=== PATIENT | female | born 1995 | race Caucasian/White ===

== ENCOUNTER 2018-06-03 21:19 | Emergency (ER) | payer MEDICAID ==
[~2018-06-03] VITALS: Ht 144.8 cm; Wt 62.0 kg
[~2018-06-03 21:19] MED LIST: ACCUPRIL5 MG PO; IRON325 MG PO; NAPROSYN500 MG PO; NO MEDS; PRENATAL1 TA1 PO
[2018-06-03] MEDS ORDERED: MOTRIN800 MG PO (21:49)
[2018-06-03] MEDS ORDERED: TRAMADOL HCL50 MG PO (21:49)
[2018-06-03] MEDS ORDERED: AMOXICILLIN500 M2 PO (21:49)
[2018-06-03 22:06] VITALS: BP 110/70
== END 2018-06-03 22:07 | disposition home or self-care (01) ==
LOC: ED 21:19
DX: K02.9 Dental caries, unspecified (principal); K04.7 Periapical abscess without sinus

== ENCOUNTER 2020-02-24 23:36 | Emergency (ER) | payer MEDICAID ==
[~2020-02-24] VITALS: Ht 144.8 cm; Wt 64.0 kg
[~2020-02-24 23:36] MED LIST changes: +AMOXICILLIN500 M2 PO; +MOTRIN800 MG PO; +TRAMADOL HCL50 MG PO
[2020-02-25 00:20] LABS: HEMATOCRIT 34.3 % (37.0-47.0); HEMOGLOBIN 11.1 g/dl (12.0-16.0); IMMATURE GRANULOCYTES 0.2 % (0.0-5.0); MEAN CELL VOLUME 88.4 fL CALC (80.0-100.0); MEAN CORPUSCULAR HGB 28.6 pG CALC (26.0-32.0); MEAN CORPUSCULAR HGB CONC 32.4 g/dL CAL (32.0-36.0); NEUT# 2.65 thou/uL (2.00-7.15); RED BLOOD COUNT 3.88 mill/uL (4.20-5.60); RED CELL DISTRI WIDTH 13.9 % (11.5-15.5)
[2020-02-25 00:38] LABS: ALBUMIN 3.6 g/dL (3.2-5.0); ALKALINE PHOSPHATASE 81 u/l (38-126); ANION GAP 7 (6-22 (CALC)); BILIRUBIN, TOTAL 0.3 mg/dL (0.0-1.4); BUN 14 mg/dL (7-17); BUN/CREATININE RATIO 22 (12-20 (CALC)); CARBON DIOXIDE 31 mmol/l (22-30); CHLORIDE 104 mmol/l (95-108); CREATININE 0.6 mg/dL (0.5-1.0); GFR > 60 ML/MIN (>=60 (CALC)); GFR FOR AFR.AMER. > 60 ML/MIN (>=60 (CALC)); POTASSIUM 3.7 mmol/l (3.5-5.1); SGOT/AST 18 u/l (14-36); SODIUM 137 mmol/l (137-146); TOTAL PROTEIN 6.4 g/dL (6.3-8.2)
[2020-02-25 00:40] LABS: D-DIMER 0.97 mg/L (0.19-0.60)
[2020-02-25 00:48] LABS: PROTHROMBIN TIME 9.6 SECONDS (9.0-12.5)
[2020-02-25] MEDS ORDERED: TORADOL PO (02:13)
[2020-02-25 02:30] VITALS: BP 122/71
--- NOTE | 2020-02-28 08:52 | NUR ---
Notified patient of positive Covid results. Patient c/o pain with inspiration that has not worsened since her ED visit. Encouraged patient to retuen to ED or follow up with PCP. Advised patient to quarantine until [facility] contacts her with kasey instructions. Patient verbalized understanding.
== END 2020-02-25 02:30 | disposition home or self-care (01) ==
LOC: ED 23:36
PROVIDERS: Family Medicine
DX: U07.1 COVID-19 (principal)
CPT/HCPCS: Q9967

== ENCOUNTER 2020-08-27 23:11 | Emergency (ER) | payer MEDICAID ==
[~2020-08-27] VITALS: Ht 144.8 cm; Wt 64.5 kg
[~2020-08-27 23:11] MED LIST changes: +TORADOL PO
[2020-08-27 23:46] LABS: HEMATOCRIT 37.3 % (37.0-47.0); HEMOGLOBIN 12.2 g/dl (12.0-16.0); IMMATURE GRANULOCYTES 0.2 % (0.0-5.0); MEAN CORPUSCULAR HGB 29.8 pG CALC (26.0-32.0); MEAN CORPUSCULAR HGB CONC 32.7 g/dL CAL (32.0-36.0); NEUT# 7.42 thou/uL (2.00-7.15); RED BLOOD COUNT 4.1 mill/uL (4.20-5.60); RED CELL DISTRI WIDTH 13.2 % (11.5-15.5)
[2020-08-27 23:47] LABS: URINE BILIRUBIN - DIPSTICK NEGATIVE (NEGATIVE); URINE BLOOD DIPSTICK NEGATIVE (NEGATIVE); URINE COLOR YELLOW; URINE GLUCOSE - DIPSTICK NEGATIVE (NEGATIVE); URINE KETONE NEGATIVE (NEGATIVE); URINE LEUK ESTERASE TRACE (NEGATIVE); URINE NITRITE - DIPSTICK NEGATIVE (Negative); URINE PROTEIN - DIPSTICK NEGATIVE (NEG-TRACE); URINE SPECIFIC GRAVITY >=1.030; URINE UROBILINOGEN - DIPSTICK 0.2 E.U./dL (0.2)
[2020-08-28 00:25] LABS: ALBUMIN 3.7 g/dL (3.2-5.0); ALKALINE PHOSPHATASE 65 u/l (38-126); AMYLASE 60 u/l (30-110); BILIRUBIN, TOTAL 0.3 mg/dL (0.0-1.4); BUN 24 mg/dL (7-17); BUN/CREATININE RATIO 49 (12-20 (CALC)); CARBON DIOXIDE 27 mmol/l (22-30); CHLORIDE 107 mmol/l (95-108); CREATININE 0.5 mg/dL (0.5-1.0); GFR > 60 ML/MIN (>=60 (CALC)); GFR FOR AFR.AMER. > 60 ML/MIN (>=60 (CALC)); LIPASE 92 u/l (23-300); SGOT/AST 19 u/l (14-36); SODIUM 138 mmol/l (137-146); TOTAL PROTEIN 6.5 g/dL (6.3-8.2)
[2020-08-28 00:39] LABS: ANION GAP 8 (6-22 (CALC)); POTASSIUM 3.6 mmol/l (3.5-5.1)
[2020-08-28] MEDS ORDERED: PHENERGAN25 MG/TAB PO (00:46)
[2020-08-28 01:07] VITALS: BP 96/54
== END 2020-08-28 01:19 | disposition home or self-care (01) ==
LOC: ED 23:11
PROVIDERS: Family Medicine
DX: K52.9 Noninfective gastroenteritis and colitis, unspecified (principal)

== ENCOUNTER 2021-02-21 09:17 | Emergency (ER) | payer MEDICAID ==
[~2021-02-21] VITALS: Ht 144.8 cm; Wt 65.9 kg
[~2021-02-21 09:17] MED LIST changes: +PHENERGAN25 MG/TAB PO
[2021-02-21 10:52] LABS: HEMATOCRIT 39.1 % (37.0-47.0); HEMOGLOBIN 12.6 g/dl (12.0-16.0); IMMATURE GRANULOCYTES 0.2 % (0.0-5.0); MEAN CELL VOLUME 92.9 fL CALC (80.0-100.0); MEAN CORPUSCULAR HGB 29.9 pG CALC (26.0-32.0); MEAN CORPUSCULAR HGB CONC 32.2 g/dL CAL (32.0-36.0); NEUT# 3.31 thou/uL (2.00-7.15); RED BLOOD COUNT 4.21 mill/uL (4.20-5.60); RED CELL DISTRI WIDTH 12.9 % (11.5-15.5)
[2021-02-21 11:07] LABS: BUN 19 mg/dL (7-17); BUN/CREATININE RATIO 41 (12-20 (CALC)); CARBON DIOXIDE 26 mmol/l (22-30); CHLORIDE 102 mmol/l (95-108); CREATININE 0.4 mg/dL (0.5-1.0); GFR > 60 ML/MIN (>=60 (CALC)); GFR FOR AFR.AMER. > 60 ML/MIN (>=60 (CALC)); SODIUM 138 mmol/l (137-146)
[2021-02-21 11:11] LABS: ANION GAP 14 (6-22 (CALC)); POTASSIUM 4.3 mmol/l (3.5-5.1)
[2021-02-21 12:10] VITALS: BP 106/70
== END 2021-02-21 12:16 | disposition home or self-care (01) ==
LOC: ED 09:17
PROVIDERS: Family Medicine
DX: R51.9 Headache, unspecified (principal)

== ENCOUNTER 2021-03-29 17:39 | Emergency (ER) | payer MEDICAID ==
[~2021-03-29] VITALS: Ht 144.8 cm; Wt 70.0 kg
[2021-03-29] MEDS ORDERED: ZPAK PO (19:10)
[2021-03-29 19:30] VITALS: BP 121/65
== END 2021-03-29 19:30 | disposition home or self-care (01) ==
LOC: ED 17:39
DX: U07.1 COVID-19 (principal)

== ENCOUNTER 2022-03-07 20:38 | Emergency (ER) | payer MEDICAID ==
[~2022-03-07] VITALS: Ht 144.8 cm; Wt 70.0 kg
[~2022-03-07 20:38] MED LIST changes: +ZPAK PO
[2022-03-07 20:53] VITALS: BP 103/67
[2022-03-07 21:06] VITALS: BP 106/72
[2022-03-07 21:30] VITALS: BP 90/53
[2022-03-07 21:34] LABS: HEMATOCRIT 39.3 % (37.0-47.0); IMMATURE GRANULOCYTES 0.3 % (0.0-5.0); MEAN CELL VOLUME 92.5 fL CALC (80.0-100.0); MEAN CORPUSCULAR HGB 30.6 pG CALC (26.0-32.0); MEAN CORPUSCULAR HGB CONC 33.1 g/dL CAL (32.0-36.0); NEUT# 4.26 thou/uL (2.00-7.15); RED BLOOD COUNT 4.25 mill/uL (4.20-5.60)
[2022-03-07 21:49] LABS: ALKALINE PHOSPHATASE 90 u/l (38-126); ANION GAP 9 (6-22 (CALC)); BILIRUBIN, TOTAL 0.2 mg/dL (0.0-1.4); BUN 19 mg/dL (7-17); BUN/CREATININE RATIO 29 (12-20 (CALC)); CARBON DIOXIDE 27 mmol/l (22-30); CHLORIDE 106 mmol/l (95-108); CREATININE 0.7 mg/dL (0.5-1.0); GFR FOR AFR.AMER. > 60 ML/MIN (>=60 (CALC)); GFR OTHER RACES > 60 ML/MIN (>=60 (CALC)); LIPASE 95 u/l (23-300); POTASSIUM 3.8 mmol/l (3.5-5.1); SGOT/AST 25 u/l (14-36); SODIUM 138 mmol/l (137-146); TOTAL PROTEIN 7.2 g/dL (6.3-8.2)
[2022-03-07 21:54] LABS: D-DIMER 0.18 mg/L (0.19-0.60)
[2022-03-07 21:57] LABS: ACT PARTIAL THROMBO TIME 29.5 SECONDS (20.0-32.5); INTERNATIONAL NORMALIZED RATIO 0.9 RATIO (0.7-1.3); PROTHROMBIN TIME 9.7 SECONDS (9.0-12.5)
[2022-03-07 22:00] VITALS: BP 90/57
[2022-03-07 22:01] LABS: MYOGLOBIN 12 ng/mL (0 - 62)
[2022-03-07 22:30] VITALS: BP 103/59
[2022-03-07] MEDS ORDERED: VOLTAREN75 MG PO (22:36)
[2022-03-07 22:48] VITALS: BP 103/59
== END 2022-03-07 22:50 | disposition home or self-care (01) ==
LOC: ED 20:38
PROVIDERS: Family Medicine
DX: R07.89 Other chest pain (principal); Z20.822 Contact with and (suspected) exposure to COVID-19